=== PATIENT | female | born 1975 | race Caucasian/White ===

== ENCOUNTER → 2018-05-16 | Outpatient (CLI) | payer OTHER | END | disposition home or self-care (01) | LOC: LAB SHORT 10:40 → LAB 10:40 | PROVIDERS: Hospitalist | DX: Z12.4 Encounter for screening for malignant neoplasm of cervix (principal) | CPT/HCPCS: G0145 ==

== ENCOUNTER → 2020-02-16 | Outpatient (CLI) | payer OTHER | END | disposition home or self-care (01) | LOC: LAB SHORT 19:25 → LAB 19:25 | PROVIDERS: Hospitalist | DX: Z00.00 Encounter for general adult medical examination without abnormal findings (principal); R63.5 Abnormal weight gain | CPT/HCPCS: 84443; G0145 ==

== ENCOUNTER → 2023-09-17 | Outpatient (CLI) | payer OTHER ==
[2023-09-17 19:38] LABS: BASOPHILS ABSOLUTE AUTO 0.09 K/mm3 (0.00-0.23); BASOPHILS PERCENT AUTO 1 % (0-2); EOSINOPHILS ABSOLUTE AUTO 0.34 K/mm3 (0.00-0.68); EOSINOPHILS PERCENT AUTO 5 % (0-6); Hematocrit 34.3 % (33.0-51.0); Hemoglobin 10.5 g/dL (11.5-16.0); IMMATURE GRAN ABSOLUTE AUTO 0.02 K/mm3 (0.00-0.10); IMMATURE GRAN PERCENT AUTO 0 % (0-1); LYMPHOCYTES ABSOLUTE AUTO 1.85 K/mm3 (0.84-5.20); LYMPHOCYTES PERCENT AUTO 29 % (21-46); MONOCYTES ABSOLUTE AUTO 0.66 K/mm3 (0.16-1.47); MONOCYTES PERCENT AUTO 10 % (4-13); Mean Corpuscular HGB 22.3 pg (26.0-34.0); Mean Corpuscular HGB Conc 30.6 g/dL (31.5-36.5); Mean Corpuscular Volume 73 fL (80-100); Mean Platelet Volume 10.5 fL (9.1-12.4); NEUTROPHILS ABSOLUTE AUTO 3.51 K/mm3 (1.96-9.15); NEUTROPHILS PERCENT AUTO 54 % (41-73); Platelet Count 238 K/mm3 (150-400); RDW Coefficient Variation 19.2 % (11.7-14.2); RDW Standard Deviation 49.7 fL (35.1-46.3); Red Blood Cell Count 4.71 M/mm3 (3.80-5.20); White Blood Cell Count 6.47 K/mm3 (4.00-11.30)
== END | disposition home or self-care (01) ==
LOC: LAB SHORT 17:40 → LAB 17:40
PROVIDERS: Hospitalist
DX: M25.50 Pain in unspecified joint (principal); R00.0 Tachycardia, unspecified
CPT/HCPCS: 85025; 85651

== ENCOUNTER 2024-06-30 01:02 | Emergency (ER) | payer OTHER ==
[~2024-06-30] VITALS: Ht 172.7 cm; Wt 97.5 kg
[2024-06-30 01:57] LABS: BASOPHILS ABSOLUTE AUTO 0.09 K/mm3 (0.00-0.23); BASOPHILS PERCENT AUTO 1 % (0-2); EOSINOPHILS ABSOLUTE AUTO 0.39 K/mm3 (0.00-0.68); EOSINOPHILS PERCENT AUTO 4 % (0-6); Hematocrit 43.3 % (33.0-51.0); Hemoglobin 14.3 g/dL (11.5-16.0); IMMATURE GRAN ABSOLUTE AUTO 0.04 K/mm3 (0.00-0.10); IMMATURE GRAN PERCENT AUTO 0 % (0-1); LYMPHOCYTES PERCENT AUTO 34 % (21-46); MONOCYTES ABSOLUTE AUTO 0.69 K/mm3 (0.16-1.47); MONOCYTES PERCENT AUTO 7 % (4-13); Mean Corpuscular HGB 26.6 pg (26.0-34.0); Mean Corpuscular Volume 81 fL (80-100); Mean Platelet Volume 10.3 fL (9.1-12.4); NEUTROPHILS ABSOLUTE AUTO 4.97 K/mm3 (1.96-9.15); NEUTROPHILS PERCENT AUTO 53 % (41-73); Platelet Count 234 K/mm3 (150-400); RDW Coefficient Variation 14.6 % (11.7-14.2); RDW Standard Deviation 42.4 fL (35.1-46.3); Red Blood Cell Count 5.37 M/mm3 (3.80-5.20); White Blood Cell Count 9.38 K/mm3 (4.00-11.30)
[2024-06-30 02:13] LABS: Bilirubin, Total 0.3 mg/dL (0.1-1.0); Bun/Creatinine Ratio 14.4 (12.0-20.0); Calcium, Blood 9.9 mg/dL (8.5-10.1); Creatinine, Blood 0.84 mg/dL (0.40-1.00); Potassium, Blood 3.5 mmol/L (3.5-5.5)
[2024-06-30 03:00] VITALS: BP 154/98
[2024-06-30] MEDS ORDERED: Robaxin750 MG PO (03:08)
[2024-06-30] MEDS ORDERED: Ketorolac Tromethamine 15mg Vial IV ONE (03:10)
[2024-06-30] MEDS ORDERED: Methocarbamol 500 MG Tab PO ONE (03:10)
== END 2024-06-30 03:16 | disposition home or self-care (01) ==
LOC: ER 01:02
PROVIDERS: Physician Assistant
DX: T14.8XXA Other injury of unspecified body region, initial encounter (principal); D64.9 Anemia, unspecified
CPT/HCPCS: 71046; 80053; 84484; 85025; 93005; 93010; 99284-25